=== PATIENT | female | born 1935 | race Caucasian/White ===

== ENCOUNTER → 2016-04-24 | Outpatient (CLI) | payer MEDICARE, OTHER ==
[~2016-04-24] MED LIST: diphenhydrAMINE 50 MG CAP PO STA; predniSONE 50 MG TAB PO STA
[2016-04-24 14:56] LABS: Blood Urea Nitrogen 15 mg/dL (7-17); Non-African American GFR(MDRD) >60 (>60 ml/min/1.73 sqM)
--- NOTE | 2016-04-24 16:39 | CT ---
EXAMINATION TYPE: CT abdomen pelvis w con DATE OF EXAM: 04/24/2016 4:27 PM COMPARISON: NONE HISTORY: Pt states of generalized abd pain. CT DLP: 382.1 mGycm Automated exposure control for dose reduction was used. CONTRAST: CT scan of the abdomen pelvis is performed with IV Contrast, patient injected with 100 mL of Omnipaqu e 300. FINDINGS- LUNG BASES-subsegmental linear changes at the lung bases most typical scar or atelectasis. LIVER/GB-tiny hypodensities within the liver too small to characterize but likely related to simple a ppearing cysts. Gallbladder is nondistended and limited. PANCREAS- No gross abnormality is seen. SPLEEN- No gross abnormality is seen. Small accessory spleen noted. ADRENALS- No gross abnormality is seen. KIDNEYS/BLADDER- no hydronephrosis or nephrolithiasis. Tiny hypodensities within the right kidney are too small to characterize. Most likely related to tiny cyst or angiomyolipoma BOWEL- no bowel dilatation. Stomach is decompressed. There is a small hiatal hernia.. LYMPH NODES- No greater than 1cm abdominal or pelvic lymph nodes areappreciated. OSSEOUS STRUCTURES-severe multilevel degenerative disc disease with retrolisthesis L2 on L3 and T12 o n L1 correlate for canal stenosis. Prostatic right hip obscures portions of the pelvis. 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 Scoliotic curvature noted. OTHER- aorta of normal caliber. IMPRESSION- 1. Small hiatal hernia. Gastric wall is mildly thickened but this is most likely related to incomplet e distention rather than gastritis. Correlate clinically.
== END ==
LOC: RADCTMAIN 10:40
PROVIDERS: ATTEND Internal Medicine
DX: K44.9 Diaphragmatic hernia without obstruction or gangrene (principal); Z91.041 Radiographic dye allergy status; R10.84 Generalized abdominal pain
CPT/HCPCS: 82565; 84520; 74177; 36415; Q9967; J7512

== ENCOUNTER → 2016-06-27 | Outpatient (CLI) | payer MEDICARE, OTHER | END | disposition home or self-care (01) | LOC: CPPFTMAIN 10:14 | PROVIDERS: ATTEND Internal Medicine Sleep Medicine | DX: J44.9 Chronic obstructive pulmonary disease, unspecified (principal) | CPT/HCPCS: 94060; 94726 ==

== ENCOUNTER → 2016-07-21 | Outpatient (CLI) | payer MEDICARE, OTHER ==
[~2016-07-21] MED LIST changes: +DENOSUMAB 60 MG/ML 1 ML SYRINGE SQ ONE; -diphenhydrAMINE 50 MG CAP PO STA; -predniSONE 50 MG TAB PO STA
[2016-07-21 08:32] VITALS: BP 167/77; PULSE 65; RESP 16; TEMP 97.8
== END | disposition home or self-care (01) ==
LOC: PROCWHC3 07:52
PROVIDERS: ATTEND Internal Medicine
DX: M81.0 Age-related osteoporosis without current pathological fracture (principal)
CPT/HCPCS: 96372; J0897

== ENCOUNTER → 2017-02-19 | Outpatient (CLI) | payer MEDICARE, OTHER ==
[2017-02-19 09:20] VITALS: BP 148/88; PULSE 66; RESP 16; TEMP 97.7
== END | disposition home or self-care (01) ==
LOC: PROCWHC3 08:47
PROVIDERS: ATTEND Internal Medicine
DX: M81.0 Age-related osteoporosis without current pathological fracture (principal)
CPT/HCPCS: 96372; J0897

== ENCOUNTER 2017-04-20 08:42 | Day surgery (SDC) | payer MEDICARE, OTHER ==
[2017-04-18 15:09] VITALS: BMI 17.7
[~2017-04-20 08:42] MED LIST changes: -DENOSUMAB 60 MG/ML 1 ML SYRINGE SQ ONE; +LACTATED RINGERS 1,000 ML IV SCH; +LIDOCAINE 1% 20 ML VIAL (10MG/ML) FOR IV START INTRADERMA PRN
[2017-04-20 09:02] VITALS: TEMP 97.1
[2017-04-20] MEDS ORDERED: LIDOCAINE 1% INJ 10MG/ML (20 ML MDV) ONE (09:59)
[2017-04-20] MEDS ORDERED: PROPOFOL 10 MG/ML 20 ML VIAL IV ONE (09:59)
--- NOTE | 2017-04-20 10:10 | P.PCN ---
Date of Procedure: 04/20/17 Procedure(s) Performed: BRIEF HISTORY: Patient is a 81-year-old, pleasant, white her female, scheduled for an upper endoscopy as a part of evaluation of intermittent dysphagia to solids for the last 6 months duration. She feels that the food gets stuck in her throat area. She denies any odynophagia. She lost 10 pounds in the last 6 months duration because of decreased oral intake. She isn't scheduled for an upper endoscopy with possible dilation today. PROCEDURE PERFORMED: Esophagogastroduodenoscopy with biopsy. PREOPERATIVE DIAGNOSIS: Intermittent dysphagia to solids of 6 months duration. IV sedation per anesthesia. PROCEDURE: After informed consent was obtained, the patient was brought into the endoscopy unit. IV sedation was administered by Anesthesia under continuous monitoring. Initially the Olympus GIF-140 video endoscope was inserted into the mouth. Esophagus intubated without any difficulty. It was gradually advanced into the stomach and duodenum and carefully examined. The bulb and the second part of the duodenum appeared normal. The scope at this time was withdrawn to the stomach, adequately insufflated with air, and upon careful examination, mucosa of the antrum, body, cardia and the fundus appeared normal. The scope was then withdrawn into the esophagus. Small to moderate size hiatal hernia noted. The GE junction was located at 39 cm from the incisors. The entire length of esophagus appeared normal. There were no erosions or ulcerations seen. No evidence of esophageal stricture. Since were done from the esophagus to rule out years of age esophagitis. The proximal cervical esophagus was carefully examined and appeared normal. There was mild tightness at the upper esophageal sphincter noted suggestive of mild cricopharyngeal dysfunction. There was no esophageal web or Zenker's diverticulum seen and the patient tolerated the procedure well. IMPRESSION: 1. Mild cricopharyngeus dysfunction . 2. Small hiatal hernia but no evidence of esophagitis or esophageal stricture. RECOMMENDATIONS: The findings of this examination were discussed with the patient as well as her family. She was advised to follow with the biopsy results. Her symptoms are more likely related to cricopharyngeus dysphagia which is often associated in elderly with fibrosis of the upper esophageal sphincter. She was advised to eat slowly and consider soft diet. If symptoms progressively get worse will eventually investigate this with a modified barium swallow to evaluate for cricopharyngeal dysphagia.
[2017-04-20 10:40] VITALS: BP 183/78; PULSE 71; RESP 18
== END 2017-04-20 11:12 | disposition home or self-care (01) ==
LOC: ORWHC2ENDO 08:42
PROVIDERS: ATTEND Internal Medicine Gastroenterology
DX: K20.9 Esophagitis, unspecified (principal); R13.10 Dysphagia, unspecified; K44.9 Diaphragmatic hernia without obstruction or gangrene; I10 Essential (primary) hypertension; J45.909 Unspecified asthma, uncomplicated; Z86.73 Personal history of transient ischemic attack (TIA), and cerebral infarction without residual deficits; Z79.1 Long term (current) use of non-steroidal anti-inflammatories (NSAID); Z79.899 Other long term (current) drug therapy; Z91.048 Other nonmedicinal substance allergy status; Z88.5 Allergy status to narcotic agent; Z91.013 Allergy to seafood; Z91.09 Other allergy status, other than to drugs and biological substances
CPT/HCPCS: 88305; 43239; J2001; J2704